=== PATIENT | female | born 1955 | race Caucasian/White ===

== ENCOUNTER 2016-11-08 10:26 | Inpatient (IN) | payer OTHER ==
[~2016-11-08] VITALS: Ht 170.2 cm; Wt 98.0 kg
[~2016-11-08 10:26] MED LIST: AMLO5 PO; CYCL1TAB29 PO; HYDR-3533 PO; LEVO200T4 PO; PRAV20TA2 PO; TRAM50TA PO; VALS1TAB63 PO
[2016-11-09] MEDS ORDERED: ESTR0.02 T-DERMAL (12:41)
[2016-11-10] MEDS ORDERED: BACT800T5 PO (16:42)
--- NOTE | 2016-11-10 18:16 | MH ---
cc: MASON BENAVIDES MD, ROHIT K. M.D. DOMINGUEZ, CARMEN L. MD DATE OF ADMISSION 11/11/2016 ADMISSION DIAGNOSIS Lumbar degenerative disk disease and lumbar disk herniation. HISTORY OF PRESENT ILLNESS This is a 61-year-old female who presented to us for evaluation of low back pain that she has had for 15 years and right leg pain. She states that she has a history of low back pain for 15 years, Has periodically gotten steroid injections. Recently, she has gotten injections in April, June and July which were helping and she was told there was not anymore that they could do for her. She states that since June the pain is radiating to the right lateral leg to the ankle. She says there is also pain radiating to the right groin and medial thigh and anteromedial majano. After she has a pain radiating in the legs, she experiences paresthesias. She has been to physical therapy which did not help her pain. Her pain improves with lying down. She states that she has had a back injury skiing about 40 years ago with subsequent back pain. Her pain has progressively gotten worse and she rates it as a 7/10 on the pain scale. She states that her leg pain is worse than the back pain but they are both bad. PAST MEDICAL HISTORY 1. Hypothyroidism, 2. Hypertension, 3. Rheumatoid arthritis, 4. Partial knee replacement on the left side in 2013. 5. Complete knee replacement on the right side in 2010, 6. Partial hysterectomy in 2007, 7. Cholecystectomy in 2003 8. D&C in 1981. MEDICATIONS Current, 1. Levothyroxine 200 mcg daily 2. Duloxetine 60 mg daily. 3. Valsartan 40 mg daily. 4. Pravastatin 20 mg daily. 5. Amlodipine 5 mg daily. 6. Lortab 5/325 q.6 h p.r.n. pain. 7. Estradiol patch 0.05 mg. ALLERGIES PENICILLIN SOMA REGLAN FAMILY HISTORY Her mother is at 74 years old, had lung disease. Her father is at 76, had lung cancer. Her brother is alive 62 and in good health. Her other brother is alive at 47 years old and in good health. 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 She is . She has two children. She does not smoke and has not smoked in the past. She does not drink alcohol. REVIEW OF SYSTEMS CONSTITUTIONAL: Denies any fever or chills. ENT: No pharyngitis, exudates or bloody drainage from her nose CARDIOVASCULAR: She denies any chest pain or palpitations RESPIRATORY: No cough or shortness of breath. GENITOURINARY: No dysuria or hematuria. MUSCULOSKELETAL: Positive for low back pain. SKIN: No rashes or pruritus. NEUROLOGIC: No difficulty with speech or memory GASTROINTESTINAL: No nausea, vomiting, abdominal pain PSYCHIATRIC: No anxiety or depression symptoms ENDOCRINE: No polyuria or polydipsia. HEMATOLOGIC: No bruising or bleeding tendencies. PHYSICAL EXAMINATION HEAD: Normocephalic, atraumatic. NECK: Supple. No carotid bruits heard on auscultation. LUNGS: Clear to auscultation bilaterally. HEART: Regular rate and rhythm, normal S1-S2. ABDOMEN: Soft, nontender. Positive bowel sounds. SKIN: No cyanosis or erythema MUSCULOSKELETAL: She has 5/5 strength in lower extremities. She ambulates with a limp and has difficulty getting up from her chair secondary to pain. NEUROLOGIC: She is awake, alert, and orientated. Cranial nerves II-XII are grossly intact. His speech is fluent. Comprehension is good. Sensation is decreased in the right leg in all distributions. IMAGING STUDIES MRI of the lumbar spine from July 18, 2016 reveals a large L4/L5 extruded disk fragment which is on the right side and superiorly migrated into the foramen. She has a disk degeneration and grade 1 spondylolisthesis associated with this. The radiologist also related a possibility of bilateral pars defect. There is a lesser degree of disk protrusion degeneration other levels. IMPRESSION A 61-year-old female with chronic history of low back pain along with right L4-L5 radiculopathy which has particularly worsened over the last five months and normally they lead is very active lifestyle and she has had obvious restrictions on this. She has undergone physical therapy and interventional pain management without relief. The patient is requesting that we proceed with surgical intervention at this point stating that she is miserable with her current level of discomfort and restrictions. PLAN We have discussed the procedure of the L4-L5 transforaminal decompression interbody fusion with pedicle screw fixation. The procedure as well as the risks, benefit, alternative and recovery time were explained. We have discussed risks involved with surgery include but not limited to bleeding, infection, muscle weakness, voice hoarseness, difficulty swallowing, heart attack, stroke, blood clots, non-fusion, scar tissue formation among others. The patient states that she understands the procedure as well as the risks involved and she is requesting that we proceed and she was therefore scheduled accordingly. Jerrell Henry MD Dictated by LAYLA Talley/ /4:50 PM /5:55 PM
[2016-11-11 06:35] VITALS: BP 155/78; PULSE 94; RESP 18; TEMP 99.5; O2SAT 98
[2016-11-11] MEDS ORDERED: SODIUM CHLOR 0.9% 1000 ML INJ 1,000 ML IV SCH (07:00)
[2016-11-11] MEDS ORDERED: VANCOMYCIN 1,000 MG/NS 250ML (for <70 kg) IV SCH ×2 (07:00)
[2016-11-11] MEDS ORDERED: THROMBIN (TOPICAL) 5,000 UNIT VIAL ONE (07:27)
[2016-11-11] MEDS ORDERED: GELFOAM SIZE 100 ONE (07:27)
[2016-11-11] MEDS ORDERED: BUPIVACAINE/EPINEPHRINE 0.5% PF 30 ML VIAL ONE (07:27)
[2016-11-11] MEDS ORDERED: VANCOMYCIN HCL 1000 MG VIAL ONE (07:27)
[2016-11-11] MEDS ORDERED: SODIUM CHLORID 0.9% 500 ML IV SCH (07:30)
[2016-11-11] MEDS ORDERED: METOPROLOL TARTRATE 25 MG TAB PO PRN (07:30)
[2016-11-11] MEDS ORDERED: LACTATED RINGER'S 1000 ML IV SCH (07:30)
[2016-11-11] MEDS ORDERED: INSULIN HUMAN REGULAR 1,000 UNITS/10 ML VIAL SQ PRN (07:30)
[2016-11-11] MEDS ORDERED: APREPITANT 40 MG CAP ONE (08:17)
[2016-11-11] MEDS ORDERED: FAMOTIDINE 20 MG/2 ML VIAL ONE ×3 (08:18→08:20)
[2016-11-11] MEDS ORDERED: ACETAMINOPHEN 1000 MG/100 ML VIAL IV ONE (08:37)
[2016-11-11] MEDS ORDERED: VANCOMYCIN HCL 1000 MG VIAL OTHER ONE ×3 (09:29→11:50)
[2016-11-11] MEDS ORDERED: LACTATED RINGER'S 1000 ML INJ 1,000 ML IV ONE (12:00)
[2016-11-11] MEDS ORDERED: NEOSTIGMINE 3 MG/3 ML SYR IV ONE (12:00)
[2016-11-11] MEDS ORDERED: ONDANSETRON HCL 4 MG/2 ML VIAL IV PUSH ONE (12:00)
[2016-11-11] MEDS ORDERED: PROPOFOL 200 MG/20 ML AMP IV ONE (12:00)
[2016-11-11] MEDS ORDERED: NORMOSOL R INJ 2,000 ML IV ONE (12:00)
[2016-11-11] MEDS ORDERED: PHENYLEPH/NS 1000 MCG/10 ML SYR IV ONE (12:00)
[2016-11-11] MEDS: NS + KCL 20 MEQ INJ 1,000 ML IV SCH (12:40)
[2016-11-11] MEDS ORDERED: fentaNYL CITRATE 250 MCG/5 ML AMP ONE (12:46)
[2016-11-11] MEDS ORDERED: *morphine SULFATE 8 MG/ML PERIprocedure ONLY ONE ×2 (12:51→12:59)
--- NOTE | 2016-11-11 12:56 | PD.OP ---
MD Lisa Robbins MD Operative Report Date of Surgery: Nov 11, 2016 Preoperative Diagnosis: Intractable low back pain with right L4 and L5 radiculopathy; lumbar L3-4 and L4 -5 spinal stenosis; L4-5 degenerative disc disease as well as facet arthropathy and disc herniation along with a grade 1 spondylolisthesis Postoperative Diagnosis: Same Procedure: Lumbar L4-5 transforaminal interbody fusion; L3-L4 and L5 decompressive laminectomies with L4-5 microdiscectomy; L4-5 pedicle screw fixation; L4-5 interbody cage placement; microsurgical technique Anesthesia: Gen. endotracheal by Joslyn Todd Surgeon: Jerrell Henry M.D. Gray Mixing Operator(s): Brynn Joseph Operation and Findings: Following initiation of general endotracheal anesthesia, the patient had a Aragon catheter placed along with sequential compression devices. A gram of vancomycin was administered intravenously and he was turned in a prone position on a Mayco frame, on a Carlos Manuel table, and all pressure points adequately padded. The lumbosacral region was then prepped with Chloraprep and sterilely draped with Ioban along the usual sterile draping. A midline skin incision was then made extending from the L3-L5 level after infiltrating the skin with 0.5% Marcaine with epinephrine solution extending down through the fascia. The muscle fibers were split using avascular fatty plane and detached from the underlying facets, transverse process and lateral portion of lamina on the right side and a self-retaining retractor used for exposure. Intraoperative fluoroscopy was also used for level of confirmation along with microscope magnification for further dissection. There was significant facet and ligamentum flavum hypertrophy noted at the L3-4 and L4-5 levels. Right L3-5 laminae resected and L4-5 medial portion of the facet was resected with a drill bit along with the lamina and there was severe foraminal and lateral recess stenosis from hypertrophied ligamentum flavum and facet which were decompressed bilaterally through the usual lateral approach. There was L4 anterolisthesis of L5 along with disc degeneration and disc herniation on the right side superiorly migrated also leading to the spinal and foraminal stenosis. Epidural hemostasis was achieved with bipolar cautery and Gelfoam with thrombin. Subsequently entered into the disc space at the L4-5 level with a # 15 blade and myrna were used for discectomy. I then placed PEEK cage packed with local autograft bone and more local autograft bone was packed adjacent to the cage in interspace for added interbody fusion. With placement of the cage, I was able to distract the interspace and opened up the foramen further bilaterally. Subsequently in order to facilitate the fusion and provide stabilization, pedicle screw fixation was undertaken using [place] spine screws on entry point at the right L4-5 levels at the junction of the transverse process and facet. Subsequently using AP and lateral fluoroscopy tap and screw placement. The screws were then connected with a lamont and locked in place with caps. The construct appeared very secure at this point. The area was then copiously irrigated with Vancomycin solution and powder. The retractors were removed and the bipolar cautery used for hemostasis. The muscle fascia was then approximated using 2-0 Vicryl interrupted stitches and then 3-0 Vicryl subcuticular stitches also placed in interrupted fashion. The final skin closure was completed with Mastisol and Steri-Strips. A sterile dressing was then applied. The patient then turned in supine position, extubated and taken to recovery room. There were no intraoperative complications. All sponge and needle counts were correct at the end of procedure. Estimated blood loss about 200 ml. Jerrell Henry MD Nov 11, 2016 12:56
[2016-11-11] MEDS ORDERED: POTASSIUM CHLOR 20 MEQ PREMIX 100 ML IV PRN (13:00)
[2016-11-11] MEDS ORDERED: ONDANSETRON HCL 4 MG/2 ML VIAL IV PRN (13:00)
[2016-11-11] MEDS ORDERED: ZOLPIDEM TARTRATE 5 MG TAB PO PRN (13:00)
[2016-11-11] MEDS ORDERED: ACETAMINOPHEN 325 MG TAB PO PRN (13:00)
[2016-11-11] MEDS ORDERED: MENTHOL LOZENGE SUCK-ON PRN (13:00)
[2016-11-11] MEDS ORDERED: ALUMINUM/MAGNESIUM/SIMETH 30 ML CUP PO PRN (13:00)
[2016-11-11] MEDS ORDERED: cloNIDine HCL 0.1 MG TAB PO PRN (13:00)
[2016-11-11] MEDS ORDERED: diphenhydrAMINE HCL 50 MG/ML VIAL IV PRN (13:00)
[2016-11-11] MEDS ORDERED: CALCIUM GLUCONATE INJ 1 GM in SODIUM CHLORIDE 0.9% INJ 100 ML IV PRN (13:00)
[2016-11-11] MEDS ORDERED: PROCHLORPERAZINE INJ 10 MG/2 ML VIAL IVS PRN (13:00)
[2016-11-11] MEDS ORDERED: NALOXONE HCL 0.4 MG/ML AMP IV PRN (13:00)
[2016-11-11] MEDS ORDERED: MORPHINE SULFATE 30 MG/30 ML PCA IV SCH (13:00)
[2016-11-11] MEDS ORDERED: RESP: ALBUTEROL 2.5 MG/3 ML NEB (PRN) NEB (13:00)
[2016-11-11] MEDS ORDERED: SODIUM CHLORIDE 0.9% FLUSH 10 ML FLUSH IV FLUSH PRN (13:00)
[2016-11-11] MEDS ORDERED: MAGNESIUM SULFATE INJ 2 GM in SODIUM CHLORIDE 0.9% INJ 100 ML IV PRN (13:00)
[2016-11-11] MEDS ORDERED: *HYDROmorphone PF 1 MG VIAL PERIprocedural Use ONLY ONE ×3 (13:12→14:28)
[2016-11-11 13:21] LABS: AUTOMATED NEUTROPHIL # 9.2 TH/MM3 (1.8-7.7); BASOPHIL % 0.3 % (0.0-2.0); HEMATOCRIT 36.6 % (35.0-46.0); HEMO FLAGS DIFF FINAL; LYMPH % 11.3 % (9.0-44.0); LYMPHOCYTE # 1.2 TH/MM3 (1.0-4.8); MEAN CELL VOLUME 85.4 FL (80.0-100.0); MEAN CORPUSCULAR HEMOGLOBIN 28.1 PG (27.0-34.0); MEAN CORPUSCULAR HGB CONC 32.9 % (32.0-36.0); NEUT % 83.4 % (16.0-70.0); PLATELET COUNT 230 TH/MM3 (150-450); RED BLOOD COUNT 4.28 MIL/MM3 (4.00-5.30); RED CELL DISTRIBUTION WIDTH 12.8 % (11.6-17.2)
--- NOTE | 2016-11-11 13:40 | RADRPT ---
EXAM DATE/TIME: 11/11/2016 08:44 [facility] COMPARISON: No previous studies available for comparison. INDICATIONS : Post-op L4-L5 posterior lumbar fusion. MEDICAL HISTORY : None. SURGICAL HISTORY : None. ENCOUNTER: Initial ACUITY: 1 day PAIN SCORE: Non-responsive. LOCATION: Lumbar spine. FINDINGS: Two view examination was performed. Targeted intraoperative views of the lumbar spine show unilateral right-sided transpedicular fixation L4-5 intervertebral disc prostheses. Vertebral body heights are maintained without fracture. Minimal grade 1 anterolisthesis of L4 on 5. CONCLUSION: Unilateral, right-sided transpedicular fixation at L4-5 with intervertebral disc prostheses. Neville Robert MD on November 11, 2016 at 13:35 Board Certified Radiologist. This report was verified electronically.
--- NOTE | 2016-11-11 13:41 | RADRPT ---
EXAM DATE/TIME: 11/11/2016 08:44 [facility] COMPARISON: No previous studies available for comparison. INDICATIONS : L4-L5 posterior lumbar fusion. Level localization. MEDICAL HISTORY : None. SURGICAL HISTORY : None. ENCOUNTER: Initial ACUITY: 1 day PAIN SCORE: Non-responsive. LOCATION: Lumbar spine. FINDINGS: A single lateral view of the lumbar spine shows a metallic retractor and localizer posterior to the L 4-5 disc interspace. Minimal grade 1 anterolisthesis of L4 on 5. CONCLUSION: Metallic localizer posterior to the L4-5 disc interspace. Neville Robert MD on November 11, 2016 at 13:39 Board Certified Radiologist. This report was verified electronically.
[2016-11-11 13:42] LABS: BICARBONATE 24.4 MEQ/L (21.0-32.0); POTASSIUM 3.4 MEQ/L (3.5-5.1)
[2016-11-11] MEDS: CYCLOBENZAPRINE HCL 10 MG TAB PO SCH ×2 (14:00→20:43)
[2016-11-11] MEDS: PCA - TOTAL MG MORPHINE DELIVERED PER SHIFT SCH ×2 (14:00→22:00)
[2016-11-11 15:14] LABS: CALCIUM-PROTEIN CORRECTED 8.7 MG/DL (8.5-10.1)
[2016-11-11 15:15] VITALS: BP 131/75; PULSE 108; RESP 16; TEMP 96.3; O2SAT 98
[2016-11-11] MEDS: ACETAMINOPHEN/HYDROcodone 325 MG/10 MG TAB PO PRN (15:46)
[2016-11-11] MEDS: CLINDAMYCIN INJ 600 MG in SODIUM CHLORIDE 0.9% INJ 100 ML IV SCH ×2 (15:46→20:47)
[2016-11-11 20:00] VITALS: BP 126/68; PULSE 97; RESP 17; TEMP 97.7; O2SAT 96
[2016-11-11] MEDS: DOCUSATE SODIUM 100 MG CAP PO SCH (20:43)
[2016-11-11] MEDS: SULFAMETHOXAZOLE-TRIMETHOPRIM DS 800-160 MG TAB PO SCH (20:43)
[2016-11-11] MEDS: SODIUM CHLORIDE 0.9% FLUSH 10 ML FLUSH IV FLUSH SCH (20:48)
[2016-11-11 21:22] VITALS: O2SAT 95
[2016-11-12] VITALS (7 sets, daily range): BP systolic 121–155; BP diastolic 56–84; PULSE 75–93; RESP 16–18; TEMP 97.4–98.9; O2SAT 95–98
[2016-11-12] MEDS: NS + KCL 20 MEQ INJ 1,000 ML IV SCH ×2 (03:14→09:09)
[2016-11-12] MEDS: CLINDAMYCIN INJ 600 MG in SODIUM CHLORIDE 0.9% INJ 100 ML IV SCH ×2 (03:14→09:07)
[2016-11-12 05:32] LABS: BICARBONATE 27.1 MEQ/L (21.0-32.0); POTASSIUM 3.9 MEQ/L (3.5-5.1)
[2016-11-12] MEDS: PCA - TOTAL MG MORPHINE DELIVERED PER SHIFT SCH (06:00)
[2016-11-12] MEDS: CYCLOBENZAPRINE HCL 10 MG TAB PO SCH ×3 (06:09→22:45)
[2016-11-12] MEDS: LEVOTHYROXINE SODIUM 200 MCG TAB PO SCH (06:10)
[2016-11-12] MEDS: SODIUM CHLORIDE 0.9% FLUSH 10 ML FLUSH IV FLUSH SCH ×2 (09:00→19:45)
[2016-11-12] MEDS: SULFAMETHOXAZOLE-TRIMETHOPRIM DS 800-160 MG TAB PO SCH ×2 (09:15→19:44)
[2016-11-12] MEDS: DOCUSATE SODIUM 100 MG CAP PO SCH ×2 (09:15→19:44)
[2016-11-12] MEDS: VALSARTAN 40 MG TAB PO SCH (09:15)
[2016-11-12] MEDS: POLYETHYLENE GLYCOL 17 GM PKG PO SCH (09:15)
[2016-11-12] MEDS: PANTOPRAZOLE SOD 40 MG DELAYED RELEASE TAB PO SCH (09:15)
[2016-11-12] MEDS: PRAVASTATIN SOD 20 MG TAB PO SCH (09:16)
[2016-11-12] MEDS: amLODIPine BESYLATE 5 MG TAB PO SCH (09:16)
[2016-11-12] MEDS: ACETAMINOPHEN/HYDROcodone 325 MG/10 MG TAB PO PRN ×4 (09:16→22:45)
--- NOTE | 2016-11-12 14:42 | HHI.NSPN ---
History Interval History 11/12: Patient out of bed. Reports minimal back pain. Exam Results Vital Signs Date Time Temp Pulse Resp B/P Pulse Ox O2 Delivery O2 Flow Rate FiO2 11/12/16 08:00 97.5 82 16 155/76 95 11/11/16 21:22 Nasal Cannula 2.00 Intake and Output 11/11/16 11/11/16 11/12/16 08:00 16:00 00:00 Intake Total 2675 ml 480 ml Output Total 1000 ml 3700 ml Balance 1675 ml -3220 ml Physical Examination Gen: Awake and alert HEENT: Normocephalic, pupils equally round and reactive to light, extraocular motors are intact, neck is supple, trachea is midline, no carotid bruits appreciable CV: Regular rate and rhythm Pulm: Clear to auscultation bilaterally GI: Abdomen is soft, nontender, nondistended Ext: No edema Neuro: Alert and oriented 3 CN II-XII grossly intact, no nystagmus Motor: 5/5 to all muscle groups tested. Able to stand on toes and bend at knees with minimal assistance. Sensation: Intact to light touch throughout DTR: 2+ patella, Jenelle's reflex negative, no clonus at the ankles Lab, Micro, Other Results Allergies Coded Allergies Type Severity Reaction Last Updated Verified Reglan Allergy Severe Psychosis 11/11/16 Yes Penicillin Allergy Intermediate HIVES 11/11/16 Yes Soma Allergy Intermediate Hives 11/11/16 Yes Recent Impressions Lumbar Spine X-Ray 11/11/16 0000 Signed Impressions: Service Date/Time: Friday, November 11, 2016 08:44 - CONCLUSION: Unilateral, right-sided transpedicular fixation at L4-5 with intervertebral disc prostheses. Neville Robert MD Lumbar Spine X-Ray 11/11/16 0000 Signed Impressions: Service Date/Time: Friday, November 11, 2016 08:44 - CONCLUSION: Metallic localizer posterior to the L4-5 disc interspace. Neville Robert MD //// 06:00 18:00 06:00 18:00 06:00 18:00 Intake Total 2675 ml 1978 ml Output Total 1000 ml 6100 ml Balance 1675 ml -4122 ml Intake Oral 960 ml IV Total 175 ml 1018 ml Other 2500 ml Output Urine Total 800 ml 6100 ml Estimated Blood Loss 200 ml # Bowel Movements 0 Laboratory Tests Test 11/11/16 11/11/16 11/12/16 07:35 13:05 03:56 Blood Type B POSITIVE Antibody Screen NEGATIVE White Blood Count 11.0 TH/MM3 Red Blood Count 4.28 MIL/MM3 Hemoglobin 12.0 GM/DL Hematocrit 36.6 % Mean Corpuscular Volume 85.4 FL Mean Corpuscular Hemoglobin 28.1 PG Mean Corpuscular Hemoglobin 32.9 % Concent Red Cell Distribution Width 12.8 % Platelet Count 230 TH/MM3 Mean Platelet Volume 8.7 FL Neutrophils (%) (Auto) 83.4 % Lymphocytes (%) (Auto) 11.3 % Monocytes (%) (Auto) 5.0 % Eosinophils (%) (Auto) 0.0 % Basophils (%) (Auto) 0.3 % Neutrophils # (Auto) 9.2 TH/MM3 Lymphocytes # (Auto) 1.2 TH/MM3 Monocytes # (Auto) 0.6 TH/MM3 Eosinophils # (Auto) 0.0 TH/MM3 Basophils # (Auto) 0.0 TH/MM3 CBC Comment DIFF FINAL Differential Comment Sodium Level 139 MEQ/L 141 MEQ/L Potassium Level 3.4 MEQ/L 3.9 MEQ/L Chloride Level 104 MEQ/L 107 MEQ/L Carbon Dioxide Level 24.4 MEQ/L 27.1 MEQ/L Anion Gap 11 MEQ/L 7 MEQ/L Blood Urea Nitrogen 12 MG/DL 8 MG/DL Creatinine 0.71 MG/DL 0.49 MG/DL Estimat Glomerular Filtration 84 ML/MIN 129 ML/MIN Rate Random Glucose 162 MG/DL 105 MG/DL Calcium Level 7.8 MG/DL 8.1 MG/DL Protein Corrected Calcium 8.7 MG/DL Magnesium Level 2.0 MG/DL Total Protein 6.1 GM/DL Procedure Category Date Status Time Type And Screen BBK 11/11/16 Complete 06:38 Vancomycin Inj MED 11/11/16 In Process (Vancomycin Inj) 07:00 Sodium Chlor 0.9% MED 11/11/16 Complete 1000 Ml Inj (Ns 1000 M 07:00 Lactated Ringer's MED 11/11/16 Complete 1000 Ml Inj (Lr 1000 M 07:30 Sodium Chlorid 0.9% MED 11/11/16 Complete 500 Ml Inj (Ns 500 M 07:30 Insulin Human Regular MED 11/11/16 Complete Inj (Novolin R Inj 07:30 Metoprolol Tartrate MED 11/11/16 Complete (Lopressor) 07:30 Vancomycin Inj MED 11/11/16 Complete (Vancomycin Inj) 07:27 Thrombin Top Soln MED 11/11/16 Complete (Thrombin Top Soln) 07:27 Bupivacaine-Epi Pf MED 11/11/16 Complete 0.5% Inj (Sensorcaine 07:27 Gelfoam 100 Top MED 11/11/16 Complete (Gelfoam 100 Top) 07:27 Aprepitant (Emend) MED 11/11/16 Complete 08:17 Famotidine Inj MED 11/11/16 Complete (Pepcid Inj) 08:18 Famotidine Inj MED 11/11/16 Complete (Pepcid Inj) 08:19 Famotidine Inj MED 11/11/16 Complete (Pepcid Inj) 08:20 Acetaminophen Inj MED 11/11/16 Complete (Ofirmev Inj) 08:37 Vancomycin Inj MED 11/11/16 Complete (Vancomycin Inj) 09:29 Am Admit Pre Op Care [facility] 11/11/16 Complete Vancomycin Inj MED 11/11/16 Complete (Vancomycin Inj) 11:50 Fluoroscopy,Port Up [facility] 11/11/16 Taken To 1 Hr Spine, Lumbar - [facility] 11/11/16 Resulted Lateral Only Spine, Lumbar - Ltd [facility] 11/11/16 Resulted (Ap & Lat) Fentanyl Inj MED 11/11/16 Complete (Fentanyl Inj) 12:45 Fentanyl Inj MED 11/11/16 Complete (Fentanyl Inj) 12:46 Amlodipine (Norvasc) MED 11/12/16 In Process 09:00 Cyclobenzaprine MED 11/11/16 In Process (Flexeril) 14:00 Levothyroxine MED 11/12/16 In Process (Synthroid) 06:00 Pravastatin MED 11/12/16 In Process (Pravachol) 09:00 Sulfamet-Trimeth Ds MED 11/11/16 In Process 800-160 Mg (Bactrim 21:00 Valsartan (Diovan) MED 11/12/16 In Process 09:00 *Morphine Inj MED 11/11/16 Complete (*Morphine Inj 12:51 Ns + Kcl 20 Meq Inj MED 11/11/16 Complete (Ns + Kcl 20 Meq Inj 12:49 Admit To Inpatient ADMITTING 11/11/16 Transmitted Vital Signs (Adult) MOUNIKA 11/11/16 In Process 12:49 Neuro Checks MOUNIKA 11/11/16 In Process 12:49 Activity Oob Ad Patricia MOUNIKA 11/11/16 In Process 12:49 Intake + Output MOUNIKA 11/11/16 In Process 12:49 Remove Urinary MOUNIKA 11/11/16 In Process Catheter 12:49 Scd / Sean / Foot Pump MOUNIKA 11/11/16 In Process 12:49 ^ Change Dressing MOUNIKA 11/11/16 In Process 12:49 Diet Clear Liquid DIET 11/11/16 Complete Lunch Diet Regular Basic DIET 11/11/16 Transmitted Dinner Sodium Chloride 0.9% MED 11/11/16 In Process Flush (Ns Flush) 13:00 Sodium Chloride 0.9% MED 11/11/16 In Process Flush (Ns Flush) 21:00 Clindamycin Inj MED 11/11/16 Complete (Cleocin Inj) 15:00 Docusate Sodium MED 11/11/16 In Process (Colace) 21:00 Magnesium Hydroxide MED 11/11/16 In Process Liq (Milk Of Magnesi 13:00 Al-Mag Hy-Si 40-40-4 MED 11/11/16 In Process Mg/Ml Liq (Mag-Al P 13:00 Pantoprazole MED 11/12/16 In Process (Protonix) 09:00 Ondansetron Inj MED 11/11/16 In Process (Zofran Inj) 13:00 Calcium Gluconate Inj MED 11/11/16 In Process (Calcium Gluconate 13:00 Potassium Chlor 20 MED 11/11/16 In Process Meq Premix (Kcl 20 Me 13:00 Magnesium Sulfate Inj MED 11/11/16 In Process (Magnesium Sulfate 13:00 Acetamin-Hydrocod MED 11/11/16 In Process 325-10 Mg ([place] 10-32 13:00 Acetamin-Hydrocod MED 11/11/16 In Process 325-10 Mg ([place] 10-32 13:00 Clonidine (Catapres) MED 11/11/16 In Process 13:00 Acetaminophen MED 11/11/16 In Process (Tylenol) 13:00 Menthol Jose Luis (Tonica MED 11/11/16 In Process Jose Luis) 13:00 Zolpidem (Ambien) MED 11/11/16 In Process 13:00 Albuterol Neb MED 11/11/16 In Process (Albuterol Neb) 13:00 Resp Incentive RSP 11/11/16 Logged Spirometry Consult Pt Eval & PT 11/11/16 Logged Treat 12:49 Inpatient ADMITTING 11/11/16 Transmitted Certification Prochlorperazine Inj MED 11/11/16 In Process (Compazine Inj) 13:00 Complete Blood Count LAB 11/11/16 Complete With Diff 12:49 Basic Metabolic Panel LAB 11/11/16 Complete (Bmp) 12:49 Magnesium (Mg) LAB 11/11/16 Complete 12:49 ^ Monitor MOUNIKA 11/11/16 In Process 12:49 ^ Notify Dr: Blood MOUNIKA 11/11/16 In Process Pressure 12:49 ^ Notify Dr: MOUNIKA 11/11/16 In Process Respiratory Rate 12:49 ^ Notify Dr: Other MOUNIKA 11/11/16 In Process 12:49 ^ Medication Alert [facility] 11/11/16 In Process 12:49 Naloxone Inj (Narcan MED 11/11/16 Complete Inj) 13:00 Diphenhydramine Inj MED 11/11/16 Complete (Benadryl Inj) 13:00 Morphine 1 Mg/Ml Psych Assistant MED 11/11/16 Complete (Morphine 1 Mg/Ml P 13:00 Psych Assistant Total Dose - MED 11/11/16 Complete Morphine 14:00 Polyethylene Glycol MED 11/12/16 In Process (Miralax) 09:00 *Morphine Inj MED 11/11/16 Complete (*Morphine Inj 12:59 *Hydromorphone Pf Inj MED 11/11/16 Complete (*Dilaudid Pf Inj 13:12 *Hydromorphone Pf Inj MED 11/11/16 Complete (*Dilaudid Pf Inj 13:19 Basic Metabolic Panel LAB 11/12/16 Complete (Bmp) 06:00 *Hydromorphone Pf Inj MED 11/11/16 Complete (*Dilaudid Pf Inj 14:28 Protein Corrected LAB 11/11/16 Complete Calcium(Pcc) 14:39 Equip, Psych Assistant Pump Use Of SPD 11/11/16 Logged 15:36 ^ Anticoagulant Alert MOUNIKA 11/11/16 In Process ^ Sling MOUNIKA 11/11/16 In Process Resp Oxygen Monty C RSP 11/11/16 Logged Titrat 1-4 L Brace Quick Draw ORTHO 11/11/16 Complete Corset Estradiol 0.025 Mg MED 11/15/16 In Process Patch.7d (Climara 0.0 09:00 Remove Old Patch MED 11/15/16 In Process 09:00 Class Iv Pacu Ea 30 [facility] 11/11/16 Complete MIN General/Pacu [facility] 11/11/16 Complete Post Anesthesia Oxygen [facility] 11/11/16 Complete ^ Remove Psych Assistant MOUNIKA 11/12/16 In Process 10:58 Vital Signs Date Time Temp Pulse Resp B/P Pulse Ox O2 Delivery O2 Flow Rate FiO2 11/12/16 08:00 97.5 82 16 155/76 95 11/12/16 06:00 15 11/12/16 04:00 97.7 85 17 137/67 95 11/12/16 00:00 97.6 86 16 146/84 98 11/11/16 22:00 16 11/11/16 21:22 95 Nasal Cannula 2.00 11/11/16 20:00 97.7 97 17 126/68 96 11/11/16 15:15 96.3 108 16 131/75 98 11/11/16 14:00 98.0 102 14 153/77 99 Nasal Cannula 2 11/11/16 14:00 16 11/11/16 13:45 107 15 157/81 98 Nasal Cannula 2 11/11/16 13:44 14 11/11/16 13:30 106 16 163/84 99 Nasal Cannula 2 11/11/16 13:15 105 14 156/76 99 Nasal Cannula 2 11/11/16 13:00 105 14 156/81 97 Nasal Cannula 2 11/11/16 12:45 106 14 157/79 98 Nasal Cannula 2 11/11/16 12:32 97.6 103 15 161/87 99 Nasal Cannula 2 11/11/16 06:35 99.5 94 18 155/78 98 Medical Decision Making Impression and Plan Ms Miles is a 61-year-old female with chronic low back pain. She has a lumbar disc herniation at L4-L5 with a grade 1 spondylolisthesis. She had failed conservative medical management and underwent an L4-L5 transforaminal lumbar interbody fusion. POD1 Neuro: Neurologically intact with no focal weakness. LSO brace when out of bed CV/Hypertension: Blood pressure well-controlled 11/12 resume home antihypertensive Pulm: Good O2 saturation 11/12 incentive spirometer GI: PPI prophylaxis : Good urine output FEN: Tolerating regular diet 11/12 d/c IVF Integument: Wound is intact with dressing in place ID: Afebrile Pain: Pain well-controlled on SSIS ETL DEVELOPER 11/12 d/c SSIS ETL DEVELOPER and transition to oral pain medication Activity: OOB as tolerated DVT prophylaxis: SCD, Heparin Disposition: Consider discharge home when pain controlled, resumption of bowel function Galdino Vilchis MD Nov 12, 2016 14:42
[2016-11-13] VITALS (7 sets, daily range): BP systolic 100–160; BP diastolic 60–94; PULSE 86–105; RESP 18; TEMP 96.4–99; O2SAT 92–98
[2016-11-13] MEDS: CYCLOBENZAPRINE HCL 10 MG TAB PO SCH ×3 (04:27→21:08)
[2016-11-13] MEDS: LEVOTHYROXINE SODIUM 200 MCG TAB PO SCH (04:27)
[2016-11-13] MEDS: ACETAMINOPHEN/HYDROcodone 325 MG/10 MG TAB PO PRN ×3 (04:27→21:08)
[2016-11-13] MEDS: MAGNESIUM HYDROXIDE SUSP 30 ML CUP PO PRN (05:57)
[2016-11-13] MEDS: amLODIPine BESYLATE 5 MG TAB PO SCH (08:03)
[2016-11-13] MEDS: SULFAMETHOXAZOLE-TRIMETHOPRIM DS 800-160 MG TAB PO SCH ×2 (08:03→21:08)
[2016-11-13] MEDS: DOCUSATE SODIUM 100 MG CAP PO SCH ×2 (08:03→21:08)
[2016-11-13] MEDS: VALSARTAN 40 MG TAB PO SCH (08:03)
[2016-11-13] MEDS: PANTOPRAZOLE SOD 40 MG DELAYED RELEASE TAB PO SCH (08:03)
[2016-11-13] MEDS: PRAVASTATIN SOD 20 MG TAB PO SCH (08:03)
[2016-11-13] MEDS: POLYETHYLENE GLYCOL 17 GM PKG PO SCH (08:04)
[2016-11-13] MEDS: SODIUM CHLORIDE 0.9% FLUSH 10 ML FLUSH IV FLUSH SCH ×2 (08:07→21:00)
--- NOTE | 2016-11-13 10:25 | HHI.NSPN ---
History Interval History 11/12: Patient out of bed. Reports minimal back pain. 11/13: Patient ambulating with minimal difficulties. Reports minimal back pain. + flatus but no bm Exam Results Vital Signs Date Time Temp Pulse Resp B/P Pulse Ox O2 Delivery O2 Flow Rate FiO2 11/13/16 08:00 96.9 86 18 135/68 97 11/11/16 21:22 Nasal Cannula 2.00 Intake and Output 11/12/16 11/12/16 11/13/16 08:00 16:00 00:00 Intake Total 1498 ml 480 ml Output Total 2400 ml 600 ml Balance -902 ml -120 ml Physical Examination Gen: Awake and alert HEENT: Normocephalic, pupils equally round and reactive to light, extraocular motors are intact, neck is supple, trachea is midline, no carotid bruits appreciable CV: Regular rate and rhythm Pulm: Clear to auscultation bilaterally GI: Abdomen is soft, nontender, nondistended, hypoactive bowel sounds Ext: No edema Integument: Dressing intact, clean dry Neuro: Alert and oriented 3 CN II-XII grossly intact, no nystagmus Motor: 5/5 to all muscle groups tested. Able to stand on toes and bend at knees with minimal assistance. Sensation: Intact to light touch throughout DTR: 2+ patella, Jenelle's reflex negative, no clonus at the ankles Lab, Micro, Other Results Allergies Coded Allergies Type Severity Reaction Last Updated Verified Reglan Allergy Severe Psychosis 11/11/16 Yes Penicillin Allergy Intermediate HIVES 11/11/16 Yes Soma Allergy Intermediate Hives 11/11/16 Yes Recent Impressions Lumbar Spine X-Ray 11/11/16 0000 Signed Impressions: Service Date/Time: Friday, November 11, 2016 08:44 - CONCLUSION: Unilateral, right-sided transpedicular fixation at L4-5 with intervertebral disc prostheses. Neville Robert MD Lumbar Spine X-Ray 11/11/16 0000 Signed Impressions: Service Date/Time: Friday, November 11, 2016 08:44 - CONCLUSION: Metallic localizer posterior to the L4-5 disc interspace. Neville Robert MD ///// 06:00 18:00 06:00 18:00 06:00 18:00 Intake Total 2675 ml 1978 ml 480 ml Output Total 1000 ml 6100 ml 600 ml Balance 1675 ml -4122 ml -120 ml Intake Oral 960 ml 480 ml IV Total 175 ml 1018 ml Other 2500 ml Output Urine Total 800 ml 6100 ml 600 ml Estimated Blood Loss 200 ml # Voids 2 4 # Bowel Movements 0 Laboratory Tests Test 11/11/16 11/11/16 11/12/16 07:35 13:05 03:56 Blood Type B POSITIVE Antibody Screen NEGATIVE White Blood Count 11.0 TH/MM3 Red Blood Count 4.28 MIL/MM3 Hemoglobin 12.0 GM/DL Hematocrit 36.6 % Mean Corpuscular Volume 85.4 FL Mean Corpuscular Hemoglobin 28.1 PG Mean Corpuscular Hemoglobin 32.9 % Concent Red Cell Distribution Width 12.8 % Platelet Count 230 TH/MM3 Mean Platelet Volume 8.7 FL Neutrophils (%) (Auto) 83.4 % Lymphocytes (%) (Auto) 11.3 % Monocytes (%) (Auto) 5.0 % Eosinophils (%) (Auto) 0.0 % Basophils (%) (Auto) 0.3 % Neutrophils # (Auto) 9.2 TH/MM3 Lymphocytes # (Auto) 1.2 TH/MM3 Monocytes # (Auto) 0.6 TH/MM3 Eosinophils # (Auto) 0.0 TH/MM3 Basophils # (Auto) 0.0 TH/MM3 CBC Comment DIFF FINAL Differential Comment Sodium Level 139 MEQ/L 141 MEQ/L Potassium Level 3.4 MEQ/L 3.9 MEQ/L Chloride Level 104 MEQ/L 107 MEQ/L Carbon Dioxide Level 24.4 MEQ/L 27.1 MEQ/L Anion Gap 11 MEQ/L 7 MEQ/L Blood Urea Nitrogen 12 MG/DL 8 MG/DL Creatinine 0.71 MG/DL 0.49 MG/DL Estimat Glomerular Filtration 84 ML/MIN 129 ML/MIN Rate Random Glucose 162 MG/DL 105 MG/DL Calcium Level 7.8 MG/DL 8.1 MG/DL Protein Corrected Calcium 8.7 MG/DL Magnesium Level 2.0 MG/DL Total Protein 6.1 GM/DL Procedure Category Date Status Time Type And Screen BBK 11/11/16 Complete 06:38 Vancomycin Inj MED 11/11/16 In Process (Vancomycin Inj) 07:00 Sodium Chlor 0.9% MED 11/11/16 Complete 1000 Ml Inj (Ns 1000 M 07:00 Lactated Ringer's MED 11/11/16 Complete 1000 Ml Inj (Lr 1000 M 07:30 Sodium Chlorid 0.9% MED 11/11/16 Complete 500 Ml Inj (Ns 500 M 07:30 Insulin Human Regular MED 11/11/16 Complete Inj (Novolin R Inj 07:30 Metoprolol Tartrate MED 11/11/16 Complete (Lopressor) 07:30 Vancomycin Inj MED 11/11/16 Complete (Vancomycin Inj) 07:27 Thrombin Top Soln MED 11/11/16 Complete (Thrombin Top Soln) 07:27 Bupivacaine-Epi Pf MED 11/11/16 Complete 0.5% Inj (Sensorcaine 07:27 Gelfoam 100 Top MED 11/11/16 Complete (Gelfoam 100 Top) 07:27 Aprepitant (Emend) MED 11/11/16 Complete 08:17 Famotidine Inj MED 11/11/16 Complete (Pepcid Inj) 08:18 Famotidine Inj MED 11/11/16 Complete (Pepcid Inj) 08:19 Famotidine Inj MED 11/11/16 Complete (Pepcid Inj) 08:20 Acetaminophen Inj MED 11/11/16 Complete (Ofirmev Inj) 08:37 Vancomycin Inj MED 11/11/16 Complete (Vancomycin Inj) 09:29 Am Admit Pre Op Care [facility] ([place], [place]) 11/11/16 Complete Vancomycin Inj MED 11/11/16 Complete (Vancomycin Inj) 11:50 Fluoroscopy,Port Up RADDIAG 11/11/16 Taken To 1 Hr Spine, Lumbar - RADDIAG 11/11/16 Resulted Lateral Only Spine, Lumbar - Ltd [facility]DIAG 11/11/16 Resulted (Ap & Lat) Fentanyl Inj MED 11/11/16 Complete (Fentanyl Inj) 12:45 Fentanyl Inj MED 11/11/16 Complete (Fentanyl Inj) 12:46 Amlodipine (Norvasc) MED 11/12/16 In Process 09:00 Cyclobenzaprine MED 11/11/16 In Process (Flexeril) 14:00 Levothyroxine MED 11/12/16 In Process (Synthroid) 06:00 Pravastatin MED 11/12/16 In Process (Pravachol) 09:00 Sulfamet-Trimeth Ds MED 11/11/16 In Process 800-160 Mg (Bactrim 21:00 Valsartan (Diovan) MED 11/12/16 In Process 09:00 *Morphine Inj MED 11/11/16 Complete (*Morphine Inj 12:51 Ns + Kcl 20 Meq Inj MED 11/11/16 Complete (Ns + Kcl 20 Meq Inj 12:49 Admit To Inpatient ADMITTING 11/11/16 Transmitted Vital Signs (Adult) MOUNIKA 11/11/16 In Process 12:49 Neuro Checks MOUNIKA 11/11/16 In Process 12:49 Activity Oob Ad Patricia MOUNIKA 11/11/16 In Process 12:49 Intake + Output MOUNIKA 11/11/16 In Process 12:49 Remove Urinary MOUNIKA 11/11/16 In Process Catheter 12:49 Scd / Sean / Foot Pump MOUNIKA 11/11/16 In Process 12:49 ^ Change Dressing MOUNIKA 11/11/16 In Process 12:49 Diet Clear Liquid DIET 11/11/16 Complete Lunch Diet Regular Basic DIET 11/11/16 Transmitted Dinner Sodium Chloride 0.9% MED 11/11/16 In Process Flush (Ns Flush) 13:00 Sodium Chloride 0.9% MED 11/11/16 In Process Flush (Ns Flush) 21:00 Clindamycin Inj MED 11/11/16 Complete (Cleocin Inj) 15:00 Docusate Sodium MED 11/11/16 In Process (Colace) 21:00 Magnesium Hydroxide MED 11/11/16 In Process Liq (Milk Of Magnesi 13:00 Al-Mag Hy-Si 40-40-4 MED 11/11/16 In Process Mg/Ml Liq (Mag-Al P 13:00 Pantoprazole MED 11/12/16 In Process (Protonix) 09:00 Ondansetron Inj MED 11/11/16 In Process (Zofran Inj) 13:00 Calcium Gluconate Inj MED 11/11/16 In Process (Calcium Gluconate 13:00 Potassium Chlor 20 MED 11/11/16 In Process Meq Premix (Kcl 20 Me 13:00 Magnesium Sulfate Inj MED 11/11/16 In Process (Magnesium Sulfate 13:00 Acetamin-Hydrocod MED 11/11/16 In Process 325-10 Mg ([place] 10-32 13:00 Acetamin-Hydrocod MED 11/11/16 In Process 325-10 Mg ([place] 10-32 13:00 Clonidine (Catapres) MED 11/11/16 In Process 13:00 Acetaminophen MED 11/11/16 In Process (Tylenol) 13:00 Menthol Jose Luis (Anderson MED 11/11/16 In Process Jose Luis) 13:00 Zolpidem (Ambien) MED 11/11/16 In Process 13:00 Albuterol Neb MED 11/11/16 In Process (Albuterol Neb) 13:00 Resp Incentive RSP 11/11/16 Complete Spirometry Consult Pt Eval & PT 11/11/16 Logged Treat 12:49 Inpatient ADMITTING 11/11/16 Transmitted Certification Prochlorperazine Inj MED 11/11/16 In Process (Compazine Inj) 13:00 Complete Blood Count LAB 11/11/16 Complete With Diff 12:49 Basic Metabolic Panel LAB 11/11/16 Complete (Bmp) 12:49 Magnesium (Mg) LAB 11/11/16 Complete 12:49 ^ Monitor MOUNIKA 11/11/16 In Process 12:49 ^ Notify Dr: Blood MOUNIKA 11/11/16 In Process Pressure 12:49 ^ Notify Dr: MOUNIKA 11/11/16 In Process Respiratory Rate 12:49 ^ Notify Dr: Other MOUNIKA 11/11/16 In Process 12:49 ^ Medication Alert [facility] 11/11/16 In Process 12:49 Naloxone Inj (Narcan MED 11/11/16 Complete Inj) 13:00 Diphenhydramine Inj MED 11/11/16 Complete (Benadryl Inj) 13:00 Morphine 1 Mg/Ml Tallow Refiner MED 11/11/16 Complete (Morphine 1 Mg/Ml P 13:00 Tallow Refiner Total Dose - MED 11/11/16 Complete Morphine 14:00 Polyethylene Glycol MED 11/12/16 In Process (Miralax) 09:00 *Morphine Inj MED 11/11/16 Complete (*Morphine Inj 12:59 *Hydromorphone Pf Inj MED 11/11/16 Complete (*Dilaudid Pf Inj 13:12 *Hydromorphone Pf Inj MED 11/11/16 Complete (*Dilaudid Pf Inj 13:19 Basic Metabolic Panel LAB 11/12/16 Complete (Bmp) 06:00 *Hydromorphone Pf Inj MED 11/11/16 Complete (*Dilaudid Pf Inj 14:28 Protein Corrected LAB 11/11/16 Complete Calcium(Pcc) 14:39 Equip, Tallow Refiner Pump Use Of SPD 11/11/16 Logged 15:36 ^ Anticoagulant Alert MOUNIKA 11/11/16 In Process ^ Sling MOUNIKA 11/11/16 In Process Resp Oxygen Monty C RSP 11/11/16 Logged Titrat 1-4 L Brace Quick Draw ORTHO 11/11/16 Complete Corset Estradiol 0.025 Mg MED 11/15/16 In Process Patch.7d (Climara 0.0 09:00 Remove Old Patch MED 11/15/16 In Process 09:00 Class [facility]16 Complete MIN General/[facility]u [facility] 11/11/16 Complete Post Anesthesia Oxygen [facility] 11/11/16 Complete ^ Remove Tallow Refiner MOUNIKA 11/12/16 In Process 10:58 Sling Cradle Arm ORTHO 11/12/16 Complete Vital Signs Date Time Temp Pulse Resp B/P Pulse Ox O2 Delivery O2 Flow Rate FiO2 11/13/16 08:00 96.9 86 18 135/68 97 11/13/16 04:56 97.8 98 18 139/73 97 11/13/16 00:00 98.8 93 18 100/60 97 11/12/16 20:50 97.4 79 18 148/78 97 11/12/16 16:00 98.9 93 18 121/56 96 11/12/16 14:28 98 11/12/16 12:00 98.0 75 18 135/75 96 11/12/16 08:00 97.5 82 16 155/76 95 11/12/16 06:00 15 11/12/16 04:00 97.7 85 17 137/67 95 11/12/16 00:00 97.6 86 16 146/84 98 11/11/16 22:00 16 11/11/16 21:22 95 Nasal Cannula 2.00 11/11/16 20:00 97.7 97 17 126/68 96 11/11/16 15:15 96.3 108 16 131/75 98 11/11/16 14:00 98.0 102 14 153/77 99 Nasal Cannula 2 11/11/16 14:00 16 11/11/16 13:45 107 15 157/81 98 Nasal Cannula 2 11/11/16 13:44 14 11/11/16 13:30 106 16 163/84 99 Nasal Cannula 2 11/11/16 13:15 105 14 156/76 99 Nasal Cannula 2 11/11/16 13:00 105 14 156/81 97 Nasal Cannula 2 11/11/16 12:45 106 14 157/79 98 Nasal Cannula 2 11/11/16 12:32 97.6 103 15 161/87 99 Nasal Cannula 2 11/11/16 06:35 99.5 94 18 155/78 98 Medical Decision Making Impression and Plan Ms Miles is a 61-year-old female with chronic low back pain. She has a lumbar disc herniation at L4-L5 with a grade 1 spondylolisthesis. She had failed conservative medical management and underwent an L4-L5 transforaminal lumbar interbody fusion. POD2 Neuro: Neurologically intact with no focal weakness. LSO brace when out of bed 11/13 neurologically doing well with no focal deficits. Ambulating with no difficulties. CV/Hypertension: Blood pressure well-controlled 11/12 resume home antihypertensive 11/13 hypertension well controlled Pulm: Good O2 saturation 11/12 incentive spirometer GI: PPI prophylaxis 11/13 constipation versus postoperative ileus. Continue aggressive bowel regimen. : Good urine output FEN: Tolerating regular diet 11/12 d/c IVF Integument: Wound is intact with dressing in place ID: Afebrile Pain: Pain well-controlled on [employer] 11/12 d/c [employer] and transition to oral pain medication 11/13 pain well-controlled with minimal requirements for opioids Activity: OOB as tolerated DVT prophylaxis: SCD, Heparin Disposition: Consider discharge home following resumption of bowel function Galdino Vilchis MD Nov 13, 2016 10:25
[2016-11-14] VITALS: BP 120/65; PULSE 102; RESP 16; TEMP 99.2; O2SAT 97
[2016-11-14] MEDS: MAGNESIUM HYDROXIDE SUSP 30 ML CUP PO PRN ×2 (05:47→08:02)
[2016-11-14] MEDS: CYCLOBENZAPRINE HCL 10 MG TAB PO SCH (05:47)
[2016-11-14] MEDS: LEVOTHYROXINE SODIUM 200 MCG TAB PO SCH (05:47)
[2016-11-14 07:40] VITALS: BP 157/90; PULSE 116; RESP 16; TEMP 95.9; O2SAT 98
[2016-11-14] MEDS: DOCUSATE SODIUM 100 MG CAP PO SCH (07:56)
[2016-11-14] MEDS: amLODIPine BESYLATE 5 MG TAB PO SCH (07:56)
[2016-11-14] MEDS: SULFAMETHOXAZOLE-TRIMETHOPRIM DS 800-160 MG TAB PO SCH (07:56)
[2016-11-14] MEDS: PANTOPRAZOLE SOD 40 MG DELAYED RELEASE TAB PO SCH (07:56)
[2016-11-14] MEDS: PRAVASTATIN SOD 20 MG TAB PO SCH (07:57)
[2016-11-14] MEDS: ACETAMINOPHEN/HYDROcodone 325 MG/10 MG TAB PO PRN ×2 (07:57→11:58)
[2016-11-14] MEDS: POLYETHYLENE GLYCOL 17 GM PKG PO SCH (08:02)
[2016-11-14] MEDS: VALSARTAN 40 MG TAB PO SCH (08:02)
[2016-11-14] MEDS: SODIUM CHLORIDE 0.9% FLUSH 10 ML FLUSH IV FLUSH SCH (08:02)
[2016-11-14] MEDS ORDERED: HYDR-3583 PO (09:38)
[2016-11-14] MEDS ORDERED: CYCL1TAB29 PO (09:38)
--- NOTE | 2016-11-14 11:03 | HHI.NSPN ---
History Chief Complaint: Mild incisional pain. Interval History 11/14/16: Pt doing well this morning. She is dressed and ready to go home. Mild incisional pain. No radiculopathy in LEs. No paresthesias in LEs. Very happy with the results. Had a BM this morning. Review of Systems General: Negative for: fever, chills, insomnia Respiratory: Negative for: shortness of breath, cough, sputum Cardiovascular: Negative for: chest pain Gastrointestinal: Negative for: nausea, vomitting, diarrhea, constipation Exam Results Vital Signs Date Time Temp Pulse Resp B/P Pulse Ox O2 Delivery O2 Flow Rate FiO2 11/14/16 07:40 95.9 116 16 157/90 98 11/13/16 14:11 Nasal Cannula 21 11/11/16 21:22 2.00 Intake and Output 11/13/16 11/13/16 11/14/16 08:00 16:00 00:00 Intake Total 960 ml 480 ml Balance 960 ml 480 ml Physical Examination Resp: CTA bilaterally Heart: NSR no murmurs Abd: Soft positive bs Skin: No cyanosis or erythema in extremities. Bandage changed by RN this morning reportedly clean and dry. Muscle: Moves all 4 extremities well. Ambulating independently. Neuro: Pt awake and alert. Pupils equal. Speech clear and appropriate. Lab, Micro, Other Results 11/13/16 11/13/16 11/14/16 15:00 23:00 07:00 Intake Total 960 ml 480 ml 240 ml Balance 960 ml 480 ml 240 ml Intake Oral 960 ml 480 ml 240 ml # Voids 6 2 1 # Bowel Movements 0 0 0 Medical Decision Making Impression and Plan A: 61 y/o FM s/p L3, L4, L5 decompressive laminectomy with L4/L5 microdiscectomy with L4/L5 interbody fusion and pedicle screw fixation. P: Discharge pt home Discussed restrictions Terry Renae Nov 14, 2016 11:03
[2016-11-15] MEDS ORDERED: ESTRADIOL 0.025 MG/24 HR PATCH T-DERMAL SCH (09:00)
[2016-11-15] MEDS ORDERED: REMOVE OLD CLIMARA (ESTRADIOL) PATCH TD SCH (09:00)
[2016-11-25] MEDS ORDERED: HYDR-3583 PO (09:57)
[2016-12-05] MEDS ORDERED: LEVO175T2 PO (10:42)
[2016-12-12] MEDS ORDERED: AMLO5 PO (14:08)
[2016-12-22] MEDS ORDERED: CYCL1TAB29 PO (15:18)
[2016-12-22] MEDS ORDERED: HYDR-3583 PO (15:18)
[2017-01-06] MEDS ORDERED: HYDR-3583 PO (16:51)
--- NOTE | 2017-01-13 15:08 | HHI.DS ---
Discharge Summary Admission Date Nov 11, 2016 at 06:07 Discharge Date: Nov 14, 2016 Admitting Diagnosis (1) Low back pain Diagnosis: Principal ICD Code: M54.5 (2) Lumbar degenerative disc disease Diagnosis: Principal ICD Code: M51.36 (3) Spondylolisthesis of lumbar region Diagnosis: Principal ICD Code: M43.16 (4) Osteoarthritis ICD Code: M19.90 (5) Herniation of lumbar intervertebral disc with radiculopathy Diagnosis: Principal ICD Code: M51.16 Procedures L3, L4, L5 decompressive laminectomy with L4/L5 microdiscectomy with L4/L5 transforaminal interbody fusion with cage and pedicle screw fixation on 11/11/16 by Jerrell Henry M.D. Brief History This is a 61-year-old female who presents with an evaluation of low back pain that she's had for 15 years and right leg pain. She states that she has a history of low back pain for 15 years and has periodically gotten steroid injections. Recently she has gotten injections in April, June, and the summer which were helping and she was told there was not any thing more that they could do for her. She states that since June the pain is radiating into the right lateral leg to the ankle. She says there is also pain radiating to the right groin and medial thigh and anteromedial majano. After she has a pain radiating into the legs she has paresthesias. She has been to physical therapy which did help her pain. Her pain improves with lying down. She states that she has had a back injury skiing about 40 years ago with subsequent back pain. Her pain has progressively gotten worse and she rates it as a 7/10 on the pain scale. She states her leg pain is worse than the back pain but they 're both bad. Imaging MRI of the lumbar spine from July 18, 2016 reveals a large L4/L5 extruded disc fragment which is on the right side and superiorly migrated into the foramen. She has a disc degeneration and grade 1 spondylolisthesis associated with this. The radiologist also relate a possible bilateral pars defect. There is a lesser degree of disc protrusion and degeneration at other levels. Hospital Course Patient underwent the above-noted procedure performed by Dr. Henry. There was no intraoperative complications. Postoperatively patient was admitted to the medical floor. PT was consult. Her activity status was increased with her lumbar brace. Patient's pain was controlled and her ACID CHANGER was discontinued. Patient was discharged home in stable condition. Pt Condition on Discharge: Stable Discharge Disposition: Discharge Home Discharge Instructions DIET: Follow Instructions for: As Tolerated, No Restrictions ACTIVITIES You can perform: Shower Only-No Bath Activities to Avoid: Lifting/Bending, Prolonged Standing, Strenuous Activity, Bathing, Driving Continued Medications: Estradiol Patch 168 HR (Estradiol Patch 168 HR) 0.025 Mg/24 Hr Patch 1 PATCH T-DERMAL Q7D Remove old patch and discard when new patch being placed. Estrogen Supplements #4 Ref 0 PATCH Pravastatin (Pravastatin) 20 Mg Tab 20 MG PO DAILY Cholesterol Management #30 Ref 0 TAB Valsartan (Valsartan) 40 Mg Tab 40 MG PO DAILY Ref 0 TAB Discontinued Medications: Cyclobenzaprine (Flexeril) 10 Mg Tab 10 MG PO Q8HR Dont drive or operate machinery while on medication. Muscle Spasm #30 Ref 1 TAB Hydrocodone-Acetaminophen (Lortab) 5-325 Mg Tab 1 TAB PO Q6H PRN PAIN #60 Ref 0 TAB Tramadol (Tramadol) 50 Mg Tab 50 MG PO Q8H PRN PAIN Ref 0 TAB Terry Renae January 13, 2017 15:07
[2017-02-09] MEDS ORDERED: HYDR-3583 PO (15:45)
== END 2016-11-14 13:07 | disposition home or self-care (01) | DRG 460 ==
LOC: HSDI 11-11 06:07 → N06B 11-11 15:24
PROVIDERS: ADMIT Neurological Surgery; ATTEND Neurological Surgery
PROC: 0ST20ZZ Resection of Lumbar Vertebral Disc, Open Approach (ICD-10-PCS; 2016-11-11)
PROC: 01NB0ZZ Release Lumbar Nerve, Open Approach (ICD-10-PCS; 2016-11-11)
PROC: 0SG00AJ Fusion of Lumbar Vertebral Joint with Interbody Fusion Device, Posterior Approach, Anterior Column, Open Approach (ICD-10-PCS; principal; 2016-11-11 08:38)
DX: M51.16 Intervertebral disc disorders with radiculopathy, lumbar region (principal); I10 Essential (primary) hypertension; E03.9 Hypothyroidism, unspecified; M43.16 Spondylolisthesis, lumbar region; E66.9 Obesity, unspecified; Z68.33 Body mass index [BMI] 33.0-33.9, adult; M06.9 Rheumatoid arthritis, unspecified; E78.5 Hyperlipidemia, unspecified
CPT/HCPCS: 72020; 72100; 76000; 80048; 83735; 84155; 85025; 86850; 86900; 86901; 94150; C1713; J0131; J1170; J2270; J2370; J2405; J2710; J3010; J3370; J3480; J7030; J7120; J8501; L0627

== ENCOUNTER → 2016-11-09 | Outpatient (CLI) | payer OTHER ==
[~2016-11-09] MED LIST changes: +BACT800T5 PO; +DULO1CAP PO; +ESTR0.02 T-DERMAL; +ESTR0.5T PO; +ESTROVAN PO; +HYDR-3583 PO; +LEVO175T2 PO
== END ==
LOC: CPRE 12:23
PROVIDERS: ATTEND Neurological Surgery
DX: M51.16 Intervertebral disc disorders with radiculopathy, lumbar region (principal)